=== PATIENT | male | born 1990 | race Two or more races ===

== ENCOUNTER → 2024-11-10 | Outpatient (CLI) | payer MEDICAID, SELFPAY ==
--- NOTE | 2024-11-10 10:14 | XR_ITS ---
Examination: Shoulder,right, 3 views Technique: Shoulder AP internal rotation, AP external rotation, Y view shoulder, 3 views Exam date and time :November 10, 2024 1019 hours INDICATIONS: Right shoulder pain beginning September 18, 2024 FINDINGS: Adequate bone density Moderate narrowing glenohumeral joint No shoulder fracture or dislocation No calcific tendinitis IMPRESSION: Moderate narrowing glenohumeral joint
== END | disposition home or self-care (01) ==
LOC: CDIM 10:04
DX: M25.811 Other specified joint disorders, right shoulder (principal)
CPT/HCPCS: 73030